=== PATIENT | male | born 1930 | race Caucasian/White ===

== ENCOUNTER 2016-09-10 20:04 | Inpatient (IN) | payer OTHER, MEDICARE ==
[~2016-09-10] VITALS: Ht 180.3 cm; Wt 66.7 kg
--- NOTE | 2016-09-10 20:20 | NUR ---
PT BIBA FROM HOME S/P FALL. PT REPORTS BENDING DOWN TO GRAB SOMETHING FROM REFRIGERATOR FEELING LEGS WEAK, LOSING BALANCE AND FALLING DOWN. PT REPORTS HITTING HEAD. PER EMS PT HAS LAC ON HEAD. UNABLE TO ASSESS AT THIS TIME DUE TO BANDAGE. PT A/O X4. DENIES PAIN. PT DENIES BEING ON BLOOD THINNERS
--- NOTE | 2016-09-10 20:48 | NUR ---
PT TO CT
--- NOTE | 2016-09-10 21:23 | RADIOLOGY REPORT ---
EXAMINATION: CHEST 2 VIEWS CLINICAL INFORMATION: fall with preceding weakness. COMPARISON: 09/07/2016. TECHNIQUE: PA and lateral views of the chest were obtained. FINDINGS: Lungs are hypoexpanded with linear markings at both lung bases more suggestive of atelectasis. Tiny bilateral pleural effusions are again seen similar to the prior study. There is central vascular prominence similar to the prior study. No new focal infiltrate or pneumothorax. Cardiac mediastinal silhouettes within normal limits for the technique. No acute bony abnormality appreciated. IMPRESSION: Bilateral small pleural effusions with bibasilar markings more suggestive of atelectasis in this setting. Overall the appearance is similar to the 09/07/2016 exam.
--- NOTE | 2016-09-10 21:24 | CT SCAN REPORT ---
EXAMINATION: CT HEAD WITHOUT CONTRAST CLINICAL INFORMATION: Status post fall. Hit head on tile floor. COMPARISON: None TECHNIQUE: Contiguous axial imaging was performed from the skull base to vertex without intravenous administration of contrast. DLP: 625.2 mGy-cm FINDINGS: There is no evidence of acute intracranial hemorrhage or territorial infarction. No abnormal mass effect or midline shift is seen. Kee to white matter differentiation is well preserved. No extra-axial fluid collections are identified. The ventricles and sulci are prominent in size. There is diffuse low-attenuation within the periventricular and subcortical white matter. Moderate calcifications are present involving the vertebral arteries, basilar artery, and cavernous portions of the carotid arteries. The osseous structures and soft tissues are normal. The mastoid air cells and visualized portions of the paranasal sinuses are well aerated. IMPRESSION: 1. No acute intracranial hemorrhage. 2. Moderate cerebral atrophy, age appropriate. 3. Moderate small vessel ischemic change.
--- NOTE | 2016-09-10 21:47 | NUR ---
BLOOD DRAWN AND SENT TO LAB SST, LAV, BLUE, WATTERS, PINK
[2016-09-10 21:51] LABS: ABSOLUTE BASOPHIL COUNT 0 /CUMM (0.0-0.2); ABSOLUTE EOSINOPHIL COUNT 0.4 /CUMM (0.0-0.7); ABSOLUTE GRANULOCYTE CT 7.2 /CUMM (1.4-6.5); ABSOLUTE LYMPH COUNT 0.7 /CUMM (1.2-3.4); ABSOLUTE MONOCYTE COUNT 0.7 /CUMM (0.10-0.60); BASOPHIL % 0.4 % (0.0-2.0); EOSINOPHIL % 4.8 % (0-5); GRANULOCYTE % 79.9 % (42.2-75.2); HEMATOCRIT 29.5 % (42-52); MEAN CORPUSCULAR HGB 27.3 PG (27.0-31.0); MEAN CORPUSCULAR HGB CONC 32.8 G/DL (33.0-37.0); MEAN CORPUSCULAR VOLUME 83.3 FL (80.0-94.0); MEAN PLATELET VOLUME 7.7 FL (7.4-10.4); PLATELET COUNT 363 /CUMM (130-400); RBC DISTRIBUTION WIDTH 16.7 % (11.5-14.5); RED BLOOD CELL CT 3.54 /CUMM (4.70-6.10); WHITE BLOOD CELL COUNT 9.1 /CUMM (4.8-10.8)
--- NOTE | 2016-09-10 22:09 | NUR ---
PT APPEARS TO BE RESTING COMFORTABLY. NO APPARENT DISTRESS. FAMILY AT BEDSIDE.
--- NOTE | 2016-09-10 22:30 | NUR ---
[facility] MUSE AT BEDSIDE SUTURING 1 CM LAC
[2016-09-10] MEDS ORDERED: AMOX-CLAV 875-1 EACH PO (22:50)
--- NOTE | 2016-09-10 23:04 | ED GENERAL ADULT ---
History of Present Illness General Chief Complaint: Laceration Procedure Stated Complaint: BIBA FOR FALL, HEAD LAC Source: patient, family Exam Limitations: no limitations Allergies Coded Allergies: No Known Allergies (09/10/16) Reconcile Medications Amoxicillin/Clavulanate Potass (Amox-Clav 875-125 MG Tablet) 875 MG-125 MG TABLET 1 TAB PO BID ANTIBIOTIC, INFECTION (Reported) Triage Note: PT BIBA FROM HOME S/P FALL. PT REPORTS BENDING DOWN TO GRAB SOMETHING FROM REFRIGERATOR FEELING LEGS WEAK, LOSING BALANCE AND FALLING DOWN. PT REPORTS HITTING HEAD. PER EMS PT HAS LAC ON HEAD. UNABLE TO ASSESS AT THIS TIME DUE TO BANDAGE. PT A/O X4. DENIES PAIN. PT DENIES BEING ON BLOOD THINNERS Triage Nurses Notes Reviewed? yes HPI: 86-year-old male with a history of spinal stenosis presenting status post fall about an hour prior to arrival. Reports that he went to bend over to get something out of the refrigerator when he felt weak and lost his balance. He fell to the ground striking his right head on tile floor. Denies loss of consciousness, headache, blurry vision, nausea, vomiting. The episode was not proceeded by any lightheadedness, dizziness, chest pain, shortness of breath, diaphoresis. Per family patient has been getting progressively weaker with multiple falls over the past couple weeks. He is in the process of being referred to neurology for further evaluation of progressive weakness. At baseline ambulates with a walker, has had increasing unsteadiness with ambulation over the past 4 weeks. Currently lives alone, has been nursing services a few times a week. (MICHA WEBER,BRAIN) Vital Signs & Intake/Output Vital Signs & Intake/Output Vital Signs Date Time Temp Pulse Resp B/P B/P Pulse O2 O2 Flow FiO2 Mean Ox Delivery Rate 09/10 2249 97.2 83 18 138/63 97 09/11 2011 96.6 85 18 145/68 96 ED Intake and Output 09/11 0000 09/10 1200 Intake Total Output Total Balance Patient 148 lb Weight Past History Travel History Traveled to [place] past 21 day No Medical History Any Pertinent Medical History? none Surgical History Surgical History: non-contributory Family History Hx Contributory? No (MICHA WEBER,BRAIN) Review of Systems Review of Systems Constitutional: Reports: no symptoms. Respiratory: Reports: no symptoms. Cardiovascular: Reports: no symptoms. GI: Reports: no symptoms. Genitourinary: Reports: no symptoms. Musculoskeletal: Reports: no symptoms. Skin: Reports: no symptoms. Neurological/Psychological: Reports: weakness. Denies: numbness, paresthesia, tingling, tremors. (BRAIN MUSE PA-C) Physical Exam Physical Exam General Appearance: well developed/nourished, no apparent distress Head: Small ~1cm lac to lateral right eyebrow with active bleeding that extends into the dermis, no harriet crepitus or facial instability Ears, Nose, Throat: normal ENT inspection Neck: normal inspection, full range of motion, no midline tenderness Respiratory: normal breath sounds, chest non-tender, lungs clear Cardiovascular: regular rate/rhythm Gastrointestinal: normal bowel sounds, soft, non-tender Rectal: normal exam, heme negative stool Back: normal inspection, no vertebral tenderness Extremities: normal inspection, normal range of motion Neurologic/Psych: awake, alert, oriented x 3, 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 No CVA/TIA Diagnosis: No Severe Sepsis Present: No Septic Shock Present: No (MICHA WEBER,BRAIN) Progress Differential Diagnoses I considered the following diagnoses in my evaluation of the patient: [Cardiac etiologies versus neurologic etiologies versus infectious etiologies versus metabolic etiology versus worsening muscle atrophy considered] Initial ED EKG: normal axis, rhythm (sinus), rate (82), no ST T wave changes (BRAIN MUSE PA-C) Plan of Care: Orders Procedure Date/time Status Place in observation 09/11 0045 Active Patient Data 09/[address] in observation 09/11 0000 Active URINALYSIS 09/10 2041 Complete COMPREHENSIVE METABOLIC PANEL 09/10 2041 Complete CBC WITHOUT DIFFERENTIAL 09/10 2041 Complete EKG 09/10 2041 Active Current Medications Sig/Darrell Start time Last Medication Dose Stop Time Status Admin Tetanus/Reduced 0.5 ML ONCE ONE 09/105 CAN Diphtheria/Acell 09/10 234 Pertussis (Adacel) Tetanus/Diphtheria 0 .STK-MED ONE 09/104 CAN Toxoids Adsorbed (Decavac) Laboratory Tests 09/10/16 2312: Urinalysis LIGHT H, Urine Color YEL, Urine Clarity CLEAR, Urine pH 6.0, Ur Specific [place] >= 1.030, Urine Protein TRACE H, Urine Ketones NEG, Urine Nitrite NEG, Urine Bilirubin NEG, Urine Urobilinogen 0.2, Ur Leukocyte Esterase NEG, Ur Microscopic SEDIMENT EXAMINED, Urine RBC 1-3, Urine WBC 3-5 H, Urine Bacteria RARE H, Urine Mucus RARE, Urine Hemoglobin TRACE-INTACT H, Urine Glucose NEG 09/10/16 2135: Anion Gap 10, Estimated GFR > 60, BUN/Creatinine Ratio 36.7 H, Glucose 91, Calcium 8.8, Total Bilirubin 0.6, AST 71 H, ALT 63, Alkaline Phosphatase 91, Total Protein 6.1 L, Albumin 3.2 L, Globulin 2.9, Albumin/Globulin Ratio 1.1, CBC w Diff NO MAN DIFF REQ, RBC 3.54 L, MCV 83.3, MCH 27.3, RDW 16.7 H, MPV 7.7, Gran % 79.9 H, Lymphocytes % 7.5 L, Monocytes % 7.4, Eosinophils % 4.8, Basophils % 0.4, Absolute Granulocytes 7.2 H, Absolute Lymphocytes 0.7 L, Absolute Monocytes 0.7 H, Absolute Eosinophils 0.4, Absolute Basophils 0, PUBS MCHC 32.8 L Given patient's weakness that preceded the fall medical evaluation was completed , workup remarkable for hemoglobin to 9.7, on rectal exam stool was guaiac negative. Since patient lives alone and has had increasing falls and continues with unsteady gait during ambulation discussed with care coordination. Given that the patient is below his functional baseline status he is unsafe to return home and needs further workup of this sudden change in functional status. Will obs for further evaluation. (MICHA WEBER,BRAIN) Departure Departure Disposition: STILL A PATIENT Condition: Stable Clinical Impression Primary Impression: Weakness Secondary Impressions: Eyebrow laceration, Fall Referrals: ALLIE ROMANO,Lorraine EGAN (PCP/Family) Departure Forms: Customer Survey General Discharge Information Observation Note Spoke With: DMITRI ROMANO,BRIGIDO Physician Advisor Notified: NOEL AVILA DO Place Patient In: Non-ED OBS Care Area Rationale for Observation: My rational for observation is as follows [below functional baseline status, unsafe to return home, needs further workup of sudden change in functional status.]. (MICHA WEBER,BRAIN) PA/LAB AID Co-Sign Statement Statement: ED Attending supervision documentation- [x] I saw and evaluated the patient. I have also reviewed all the pertinent lab results and diagnostic results. I agree with the findings and the plan of care as documented in the PA's/LAB AID's documentation. [] I have reviewed the ED Record and agree with the PA's/LAB AID's documentation. [] Additions or exceptions (if any) to the PAs/LAB AID's note and plan are summarized below: [] (TIANA ROMANO,NOEL Schaffer) Procedures Laceration/Wound Repair Laceration/Wound Repair: Wound Location: face (right eyebrow) Wound's Depth, Shape: superficial Wound Length (cm): 1 Wound Explored: clean, no foreign body removed Irrigated w/ Saline (ccs): 30 Betadine Prep? Yes Anesthesia: lidocaine w/ epi Volume Anesthetic (ccs): 1 Wound Repaired With: sutures Suture Size/Type: 6:0, absorbable Number of Sutures: 2 Layer Closure? No By Who? by me Date of Last Tetanus: 09/11/16 (BRAIN MUSE PA-C) Critical Care Note Critical Care Note Critical Care Time: non-applicable (MICHA WEBER,BRAIN)
--- NOTE | 2016-09-10 23:14 | NUR ---
URINE TRIO SENT
--- NOTE | 2016-09-10 23:14 | NUR ---
PT AMBULATED TO BATHROOM USING WALKER. GAIT STEADY. ON THE WAY BACK TO ROOM PT REPORTS LEGS FEELING TIRED AND WEAK
--- NOTE | 2016-09-11 01:05 | NUR ---
MEDICATED WITH TETANUS PER ORDERS AWAITING BED FOR OBSERVATION
--- NOTE | 2016-09-11 02:15 | NUR ---
PT IS GOING TO 224-1
--- NOTE | 2016-09-11 02:19 | History & Physical ---
COLLIN MARTINEZ 09/11/16 0219: General Information and HPI MD Statement: I have seen and personally examined ALANNA DESAI and documented this H&P. The patient is a 86 year old M who presented with a patient stated chief complaint of [ multiple fall and weakness ]. Source of Information: patient, EMS Exam Limitations: no limitations History of Present Illness: 86-year-old male with a history of spinal stenosis presenting status post fall. Patient lives in a senior housing, uses roller for ambulation, has visiting physical therapist and nurse. According to patient, for the past year patient had multiple episodes of mechanical fall, on average 2-3 falls per month. The latest episode happened while patient tried to get something from refrigerator. Patient reports, how, suddenly he felt weak in his legs and collapse. According to patient as a result of the fall he had head trauma, however he denied any loss of consciousness, bowel bladder incontinence, tongue bites, confusion, focal motor sensory deficit, chest pain, palpitation, short of breath, dizziness , nausea vomiting diarrhea, new medication, fever and shaking chills. Patient had a past medical history of aortic stenosis which was evaluated by neurosurgeon and neurologist without any particular resolution. Patient pointed out that for the past year his physical capacity has been diminished over time. Of note, patient was seen by Dr. Sendy ROMANO today who ordered a CXR, based on his lontime Hx of SOB and non-specific findings on CXR. Patient was started on po Augmentin. He also has a long standing Hx of venous insuffiency and chronic le edema instrumentation ( acupuncture about last week). Allergies/Medications Allergies: Coded Allergies: No Known Allergies (09/10/16) Home Med list Amoxicillin/Clavulanate Potass (Amox-Clav 875-125 MG Tablet) 875 MG-125 MG TABLET 1 TAB PO BID ANTIBIOTIC, INFECTION (Reported) Compliance With Home Meds: GOOD Past History Travel History Traveled to [place] past 21 day No Medical History Cardiovascular: NONE Respiratory: NONE Musculoskeletal: spinal stenosis Tetanus Vaccine: 09/11/16 Surgical History Surgical History: non-contributory Past Family/Social History Functional Ability ADLs Independent: dressing, eating, toileting, bathing. Ambulation: walker IADLs Independent: housework, finances, food prep, telephone, transportation, medication admin. Needs Assist: shopping. Review of Systems Review of Systems Constitutional: Reports: see HPI. EENTM: Reports: see HPI. Cardiovascular: Reports: see HPI. Denies: no symptoms, chest pain, edema, orthopena, palpitations, peripheral edema, syncope. Respiratory: Denies: see HPI, cough, hemoptysis, orthopnea, short of breath, sputum production, stridor, wheezing. GI: Reports: no symptoms. Genitourinary: Reports: no symptoms. Musculoskeletal: Reports: see HPI. Neurological/Psychological: Reports: see HPI. All Other Systems: Reviewed and Negative Exam & Diagnostic Data Last 24 Hrs of Vital Signs/I&O Vital Signs Date Time Temp Pulse Resp B/P B/P Pulse O2 O2 Flow FiO2 Mean Ox Delivery Rate 09/11 0102 97.0 82 20 151/72 96 Room Air 09/10 2250 97.2 83 18 138/63 97 09/10 2012 96.6 85 18 145/68 96 Intake & Output 09/11 0800 09/11 0000 09/10 1600 Intake Total Output Total Balance Patient 148 lb Weight Physical Exam General Appearance Alert, Oriented X3, Cooperative, No Acute Distress Skin No Rashes, No Breakdown, No Significant Lesion Skin Temp/Moisture Exam: Warm/Dry Sepsis Skin Exam (color): Normal for Ethnicity HEENT MM slightly dry, head trauma and bruised Neck Supple, No JVD Cardiovascular Normal S1, Normal S2, No Murmurs Lungs Clear to Auscultation, Normal Air Movement Abdomen Soft, No Tenderness Neurological Normal Speech, Strength at 5/5 X4 Ext, Normal Tone, Sensation Intact, Cranial Nerves 3-12 NL Extremities No Cyanosis, No Edema Vascular Normal Pulses, Pulses Symmetrical Body Front and Back (Adult) 1) head trauma Last 24 Hrs of Labs/Fabrizio: Laboratory Tests 09/10/16 2312: Urinalysis LIGHT H, Urine Color YEL, Urine Clarity CLEAR, Urine pH 6.0, Ur Specific [place] >= 1.030, Urine Protein TRACE H, Urine Ketones NEG, Urine Nitrite NEG, Urine Bilirubin NEG, Urine Urobilinogen 0.2, Ur Leukocyte Esterase NEG, Ur Microscopic SEDIMENT EXAMINED, Urine RBC 1-3, Urine WBC 3-5 H, Urine Bacteria RARE H, Urine Mucus RARE, Urine Hemoglobin TRACE-INTACT H, Urine Glucose NEG 09/10/165: Anion Gap 10, Estimated GFR > 60, BUN/Creatinine Ratio 36.7 H, Glucose 91, Calcium 8.8, Total Bilirubin 0.6, AST 71 H, ALT 63, Alkaline Phosphatase 91, Total Protein 6.1 L, Albumin 3.2 L, Globulin 2.9, Albumin/Globulin Ratio 1.1, CBC w Diff NO MAN DIFF REQ, RBC 3.54 L, MCV 83.3, MCH 27.3, RDW 16.7 H, MPV 7.7, Gran % 79.9 H, Lymphocytes % 7.5 L, Monocytes % 7.4, Eosinophils % 4.8, Basophils % 0.4, Absolute Granulocytes 7.2 H, Absolute Lymphocytes 0.7 L, Absolute Monocytes 0.7 H, Absolute Eosinophils 0.4, Absolute Basophils 0, PUBS MCHC 32.8 L Diagnostic Data EKG Results No p wave ?? 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 Plan * Admit to general medical floor * IV hydration normal saline 100 mL per hour for mild dehydration * Continue by mouth Augmentin and repeat chest x-ray in 6-8 weeks, start the patient on Mucinex 600 mg po ER po daily * Fall precaution * Obtain renal US for assessment of the newly diagnosed exophytic soft tissue density on kidneys * PT/OT eval in the morning * Social consult in the a.m. * Admission for 3 days; short-term rehabilitation placement * Asymptomatic pyuria w/ negative nitrate>> observe, off antibiotics, if developed symptoms, sent urine Cx and start Cefteriaxone Pain management Tylenol 650 mg q6 PRN, Lidocain path amd volteran gel, IV morphin 2 mg prn Q4 for severe pain DVT prophylaxis- heparin 5000U a8h sc amd alps FC As Ranked By This Provider Problem List: 1. Weakness 2. Fall Core Measures/Miscellaneous Acute Coronary Syndrome ACS Diagnosis: No Cerebrovascular Accident CVA/TIA Diagnosis: No Congestive Heart Failure CHF Diagnosis: No Venous Thromboembolism VTE Risk Factors: Acute medical illness, Age > 40, Immobility, paresis No Mech VTE prophylaxis d/t: No contraindications No VTE Pharm Prophylaxis d/t: No contraindications VTE Diagnosis: No VTE Type: NONE VTE Confirmed by (Test): NONE Severe Sepsis Severe Sepsis Present: No Septic Shock Septic Shock Present: No Miscellaneous Documentation Attending Case Discussed With: BRIGIDO RIZVI MD Primary Care Physician: Lorraine KELLEY MD Patient sees these Specialists board turner Level of Patient Care: General Medicine Resident Review Statement Resident Statement: examined this patient, discussed with physician/internist, agreed with physician/internist, discussed with family, reviewed EMR data (avail), discussed with nursing , discussed with case mgmt, reviewed images, amended to note BRIGIDO RIZVI 09/11/16 0552: Attending MD Review Statement Attending Statement Attending MD Statement: examined this patient, discuss w/resident/PA/COMPUTER PROGRAMMER CHIEF, agreed w/resident/PA/COMPUTER PROGRAMMER CHIEF, reviewed EMR data (avail), reviewed images, amended to note Attending Assessment/Plan: CC: Fall PMH: ? none, chronic pain, spinal stenosis Patient came to ER after a fall at home. Patient was trying to get something from after generator and he bent forward, says that, his legs gave out and he fell down without loss of consciousness or dizziness. he hit his head at that time. He didn't denies any vision changes, nausea, vomiting, chest pain. Patient states that his legs are just getting stiff. According to ER note he is getting progressively weak and decreased level of functionality had multiple falls approximately 3-4 falls per month and last few months. Ambulates with walker, still unsteady for ambulation. Patient states that since last 3 weeks he had been getting nonproductive cough, worsening of breathing, pain in lateral side of the chest and back both sides upon deep breathing. Last week he followed up with the primary care physician, in office that the pressure was elevated, chest x-ray was obtained which showed pneumonia, so patient was started on Augmentin. Patient also had some venous procedure done last week according to him for ? Varicose veins and pedal edema. Patient has laceration on forehead which was sutured in ER Vitals: Afebrile, pulse, respiration, blood pressure, O2 saturation acceptable range. On exam: A O 3, cooperative, no acute distress, neck supple, JVD normal, no lymphadenopathy, mucosa dry, no focal neurological deficit but lower extremity movements are limited secondary to pain in knee joints. No dependent edema, no obvious skin rashes or inflammation, decreased pulses bilateral lower extremities, CVS: S1-S2, RRR. RS: Coarse breathing bilaterally basis right more than left. Abdomen: Soft, NT, ND, bowel sounds present. Labs: WBC 9.1, neutrophils 79%, hemoglobin 9.7, hematocrit 29.5, sodium 141, potassium 4.0, bicarbonate 25, anion gap 10, BUN 33, creatinine 0.9, AST 71, albumin 3.2 UA positive for trace protein, 3-5 WBC, rare bacteria CXR:Bilateral small pleural effusions with bibasilar markings more suggestive of atelectasis in this setting. Overall the appearance is similar to the 09/07/[address] head: 1. No acute intracranial hemorrhage. 2. Moderate cerebral atrophy, age appropriate. 3. Moderate small vessel ischemic change. A and P Patient was brought in ER by family for a fall, which appears to be mechanical without any evidence of presyncope or syncope. Patient states that his knees gave out. Reviewing his previous medical records it appears that had some moderate to severe degree spinal stenosis and lumbar degenerative disc disease, which might be contributing to the problem. At the same time patient was found to have mild bibasal infiltrates on x-ray done last week, patient states that he has dry cough and worsening shortness of breath with some back pain and lateral chest pain since 3 weeks. Patient was started outpatient Augmentin for the same considering pneumonia. On CT scan done on 2015, incidentally exophytic soft tissue density was noted on right and left kidneys, this should be followed up. Patient had small laceration on forehead, had sutures in ER. + Recurrent falls + Unsteady gait + Recently diagnosed pneumonia + Exophytic soft tissue density on kidneys - Place in observation and Gen. medicine - Orthostatic vitals in a.m. - OT PT evaluation - Gentle hydration for 1 L normal saline - Check B12 level - Need to reconfirm his home medications from his daughters in morning - Renal ultrasound - Continue by mouth Augmentin for recently suspected pneumonia - Adequate pain control - Mucinex 600 mg by mouth twice a day for cough.
--- NOTE | 2016-09-11 02:39 | NUR ---
HOUSE STAFF INTO EVALUATE PATIENT AT PRESENT
--- NOTE | 2016-09-11 02:47 | NUR ---
CONT TO AWAIT HOLDING ORDERS.
--- NOTE | 2016-09-11 02:55 | NUR ---
REPORT TO LUDIVINA CHO
[2016-09-11 03:27] VITALS: BP 142/70
[2016-09-11 06:30] VITALS: BP 136/68
--- NOTE | 2016-09-11 08:22 | PN- Housestaff ---
LOVE ROMANO,AYDEN 09/11/16 0821: Subjective Follow-up For: fall Subjective: pt was lying comfortably on the bed, arousable. reports no complains currently agreeably with plan to rehab. had 1 big loose bm this am, will get c diff if has anymore loose bm also has skin tears on the left arm, and left buttock (had abscess sp drainage), will do xeroform dressing for now, will get wound consult with Dr. Laughlin in am. Review of Systems Constitutional: Reports: see HPI. Objective Last 24 Hrs of Vital Signs/I&O Vital Signs Date Time Temp Pulse Resp B/P B/P Pulse O2 O2 Flow FiO2 Mean Ox Delivery Rate 09/11 0630 98.5 81 18 136/68 95 Room Air 09/11 0327 98.1 90 20 142/70 94 Room Air 09/11 0102 97.0 82 20 151/72 96 Room Air 09/10 2250 97.2 83 18 138/63 97 09/10 2012 96.6 85 18 145/68 96 Intake & Output 09/11 1600 09/11 0800 09/11 0000 Intake Total 400 Output Total 200 Balance 200 Intake, IV 300 Intake, Oral 100 Output, Urine 200 Patient 67.132 kg 67.132 kg Weight Physical Exam General Appearance: Alert, Oriented X3, Cooperative, No Acute Distress Skin: skin tear left arm. and left buttock non healing open wound (abscess sp drainage) HEENT: laceration on right forehead and eyebrow, sutured Cardiovascular: Regular Rate, Normal S1, Normal S2, No Murmurs Lungs: Clear to Auscultation, Normal Air Movement Abdomen: Normal Bowel Sounds, Soft, No Tenderness Neurological: Normal Speech Extremities: No Edema Current Medications: Current Medications Sig/Darrell Start time Last Medication Dose Route Stop Time Status Admin Acetaminophen 650 MG Q6P PRN 09/11 0330 AC PO Acetaminophen 1,000 MG Q6P PRN 09/11 0330 AC IV Amoxicillin/ 875 MG BID 09/11 1000 CAN Clavulanate Potassium PO 09/20 2201 Cyanocobalamin 1,000 MCG DAILY 09/11 1006 AC PO Diclofenac Sodium 1 WESLEY 4 TIMES/DAY 09/11 0317 DC TOP Guaifenesin 600 MG Q12 09/11 1000 AC 09/11 PO 1009 Lidocaine 1 PAT Q24H 09/11 0330 AC 09/11 EXT 0507 Lidocaine/Epinephrine 0 .STK-MED ONE 09/10 2216 DC .ROUTE Lidocaine/Epinephrine 20 ML ONCE ONE 09/10 2214 DC 09/10 ID 09/11 2215 2242 Morphine Sulfate 2 MG Q4P PRN 09/11 033 AC IV Sodium Chloride 1,000 ML ONCE ONE 09/11 0330 AC 09/11 IV 09/11 1329 0516 Tetanus/Diphtheria 0.5 ML ONCE ONE 09/10 2345 DC 09/11 Toxoids Adsorbed IM 09/10 2346 0106 Tetanus/Diphtheria 0 .STK-MED ONE 09/10 2344 CAN Toxoids Adsorbed IM Tetanus/Reduced 0.5 ML ONCE ONE 09/10 2344 CAN Diphtheria/Acell IM 09/10 234 Pertussis Last 24 Hrs of Lab/Fabrizio Results Last 24 Hrs of Labs/Mics: Laboratory Tests 09/11/16 0650: Anion Gap 9, Estimated GFR > 60, BUN/Creatinine Ratio 35.0 H, CBC w Diff NO MAN DIFF REQ, RBC 3.29 L, MCV 83.0, MCH 27.7, RDW 16.0 H, MPV 8.1, Gran % 73.1, Lymphocytes % 9.6 L, Monocytes % 8.5, Eosinophils % 8.2 H, Basophils % 0.6, Absolute Granulocytes 5.1, Absolute Lymphocytes 0.7 L, Absolute Monocytes 0.6, Absolute Eosinophils 0.6, Absolute Basophils 0, PUBS MCHC 33.4 09/10/16 2312: Urinalysis LIGHT H, Urine Color YEL, Urine Clarity CLEAR, Urine pH 6.0, Ur Specific [place] >= 1.030, Urine Protein TRACE H, Urine Ketones NEG, Urine Nitrite NEG, Urine Bilirubin NEG, Urine Urobilinogen 0.2, Ur Leukocyte Esterase NEG, Ur Microscopic SEDIMENT EXAMINED, Urine RBC 1-3, Urine WBC 3-5 H, Urine Bacteria RARE H, Urine Mucus RARE, Urine Hemoglobin TRACE-INTACT H, Urine Glucose NEG 09/10/16 2135: Anion Gap 10, Estimated GFR > 60, BUN/Creatinine Ratio 36.7 H, Glucose 91, Calcium 8.8, Total Bilirubin 0.6, AST 71 H, ALT 63, Alkaline Phosphatase 91, Total Protein 6.1 L, Albumin 3.2 L, Globulin 2.9, Albumin/Globulin Ratio 1.1, Vitamin B12 234 L, CBC w Diff NO MAN DIFF REQ, RBC 3.54 L, MCV 83.3, MCH 27.3, RDW 16.7 H, MPV 7.7, Gran % 79.9 H, Lymphocytes % 7.5 L, Monocytes % 7.4, Eosinophils % 4.8, Basophils % 0.4, Absolute Granulocytes 7.2 H, Absolute Lymphocytes 0.7 L, Absolute Monocytes 0.7 H, Absolute Eosinophils 0.4, Absolute Basophils 0, PUBS MCHC 32.8 L Microbiology 09/11 0949 STOOL: Clostridium difficile Toxin A & B - COLB Assessment/Plan Assessment: 86-year-old male with a history of spinal stenosis presenting status post fall, with recurrent falls (3-4 per month). # Recurrent fall, unsteady gait # Laceration on forehead sutured in ED - CT head no acute intracranial hemorrhage - Vit b12 found to be low at 234 * Vit b12 supplementation ordered * PT recc STR, need 3 night stay * Admit to [facility] * Monitor h/h # Recently diagnosed pneumonia - Patient states that since last 3 weeks he had been getting nonproductive cough , worsening of breathing, pain in lateral side of the chest and back both sides upon deep breathing. On September 07, he followed up with the primary care physician , in office that the pressure was elevated, chest x-ray was obtained which showed pneumonia, so patient was started on Augmentin. - CXR:Bilateral small pleural effusions with bibasilar markings more suggestive of atelectasis in this setting. Overall the appearance is similar to the 2016 exam. * Follow off abx as pt now complains of loose stool and no convining evidence of pneumonia * mucinex 600 bid for cough # Loose stool - was on abx prior to admission for pna * follow up cdiff # Exophytic soft tissue densities on bilateral kidneys on CT in 2016 * Follow up renal ultrasound # Skin tears, non healing left buttock abscess sp drainage * xeroform dressing for now * will get wound consult with Dr. Laughlin in am. Diet: regular Pain management Tylenol 650 mg q6 PRN, Lidocaine patch, IV morphine 2 mg prn Q4 for severe pain DVT prophylaxis- heparin 5000U q8h sc amd alps FC Problem List: 1. Weakness 2. Fall Pain Ratin Pain Location: none Pain Goal: Remain pain free Pain Plan: mild pp Tomorrow's Labs & Rationales: cbc for dropping h/h sp fall DVT/Prophylaxis: mechanical, pharmacological KATHY ROMANO,BRIAN 09/11/16 1007: Attending MD Review Statement Attending Statement Attending MD Statement: examined this patient, discuss w/resident/PA/MAIL FORWARDING SYSTEM MARKUP CLERK, agreed w/resident/PA/MAIL FORWARDING SYSTEM MARKUP CLERK, discussed with family, discussed with nursing, reviewed images Attending Assessment/Plan: I spoke to both the patient's daughters at length. This is an 86-year-old male with a past medical history that's not very significant but was had a significant change in his physical capacity for the past 6 months. He's been seeing Dr. Kaba and most recently saw Dr. Contreras for spinal stenosis. He has been feeling progressively more weak and ultimately fell sustaining a laceration to his head requiring sutures over his right eyebrow and a knee abrasion with an elbow bruise. Dr. Kaba had recently started him on by mouth Augmentin as of September 07 in view of a chest x-ray that showed ?pneumonia however the chest x-ray shows much more atelectasis and given the lack of fever or cough and the fact that the nurses saying he is having some loose bowel movements will stop the Augmentin and check a stool for C. difficile. His B12 level has come back low and that could certainly account for his weakness . Will start B12 supplementation. At this point we are pending a PT eval and the nurse walked him, he's an assist of 2. I think he is going to need short-term rehabilitation for safe discharge planning. Will await PT and if he does need STR, will need to make him an admission and follow closely. The daughters are on board with the plan.
[2016-09-11 08:36] LABS: ABSOLUTE BASOPHIL COUNT 0 /CUMM (0.0-0.2); ABSOLUTE EOSINOPHIL COUNT 0.6 /CUMM (0.0-0.7); ABSOLUTE GRANULOCYTE CT 5.1 /CUMM (1.4-6.5); ABSOLUTE LYMPH COUNT 0.7 /CUMM (1.2-3.4); ABSOLUTE MONOCYTE COUNT 0.6 /CUMM (0.10-0.60); BASOPHIL % 0.6 % (0.0-2.0); EOSINOPHIL % 8.2 % (0-5); GRANULOCYTE % 73.1 % (42.2-75.2); HEMATOCRIT 27.3 % (42-52); MEAN CORPUSCULAR HGB 27.7 PG (27.0-31.0); MEAN CORPUSCULAR HGB CONC 33.4 G/DL (33.0-37.0); MEAN PLATELET VOLUME 8.1 FL (7.4-10.4); PLATELET COUNT 321 /CUMM (130-400); RED BLOOD CELL CT 3.29 /CUMM (4.70-6.10); WHITE BLOOD CELL COUNT 6.9 /CUMM (4.8-10.8)
--- NOTE | 2016-09-11 09:07 | NUR ---
RECEIVED PT FROM ER AT 0315. A/O X3. ON RA. VSS. DRSG CHANGED TO L KNEE ABRASION, L ELBOW SKIN TEAR AND L HAND ABRASION. DUODERM APPLIED TO AN OPEN AREA TO R BUTTOCK. SUTURES X2 TO THE END OF R EYEBROW. LIDOCAINE PATCH APPLIED TO L FLANK. FALL PREC PLACED. ALPS TO BLE. VOIDING WITHOUT PROBLEM. WILL CONTINUE TO MONITOR.
--- NOTE | 2016-09-11 10:45 | ULTRASOUND REPORT ---
EXAMINATION: US RETROPERITONEAL COMPLETE (RENAL) CLINICAL INFORMATION: Follow-up of renal densities. COMPARISON: CT lumbar spine dated 07/29/2016. TECHNIQUE: Real-time imaging of the kidneys and bladder. FINDINGS: RIGHT KIDNEY: 10.5 x 4.4 x 4.0 cm (SAG x AP x TRV). The kidney is normal in size, contour, and echogenicity. Renal cortical thickness is normal. No calculi or focal parenchymal solid lesions. At the upper pole of, a 1.6 x 1.6 x 1.4 cm hypoechoic, mildly complex (Bosniak 2F) cyst is seen with increased through sound transmission. At the lower pole, a 3.4 x 3.3 x 3.4 cm hypoechoic, mildly complex (Bosniak 2F) cyst is seen with increased through sound transmission. No hydronephrosis. LEFT KIDNEY: Nonvisualized, with limitations are noted due to dressing material overlapping the left flank. BLADDER: Poorly distended and presently incompletely evaluated with ultrasound. Bilateral ureteral jets are demonstrated. Pre-void bladder volume is 57 mL. Post-void bladder volume is not obtained. OTHER: Limited evaluation the prostate yields an estimated volume of 47.1 mL. IMPRESSION: 1. Two mildly complex hypoechoic (Bosniak 2F) cysts are seen, as detailed. As a precaution, repeat renal ultrasound exam is recommended in 6 months to ensure stability. 2. There is prostatomegaly.
[2016-09-11 15:11] VITALS: BP 132/68
--- NOTE | 2016-09-11 15:53 | Patient Discharge Instructions ---
Discharge Instructions General Discharge Information You were seen/treated for: Vitamin B12 deficiency Recurrent fall, unsteady gait Special Instructions: Please follow up with PCP in 1 week. Please get renal ultrasound in 6 months for renal mass. Wound care recommended offload pressure ulcer and low air loss mattress and to continue to use xeroderm changed every 2-3 days. Diet Continue normal diet: Yes Activity Full Activity/No Limits: Yes Acute Coronary Syndrome Inclusion Criteria At DC or during hospital stay patient has or had the following: ACS DIAGNOSIS No Discharge Core Measures Meds if any: Prescribed or Continued at Discharge Meds if any: NOT Prescribed or Continued at Discharge Congestive Heart Failure Inclusion Criteria At DC or during hospital stay patient has or had the following: CHF DIAGNOSIS No Discharge Core Measures Meds if any: Prescribed or Continued at Discharge Meds if any: NOT Prescribed or Continued at Discharge Cerebrovascular accident Inclusion Criteria At DC or during hospital stay patient has or had the following: CVA/TIA Diagnosis No Discharge Core Measures Meds if any: Prescribed or Continued at Discharge Meds if any: NOT Prescribed or Continued at Discharge Venous thromboembolism Inclusion Criteria VTE Diagnosis No VTE Type NONE VTE Confirmed by (Test) NONE Discharge Core Measures - Per Current guidelines, there needs to be overlap - treatment for the first 5 days of Warfarin therapy. - If discharged on Warfarin prior to 5 days of - overlap therapy, the patient will need to be - assessed for post discharge needs including - *Post discharge parental anticoagulation - *Warfarin and/or parental anticoagulation education - *Follow up date to check INR post discharge At least 5 days overlap therapy as Inpatient No Meds if any: Prescribed or Continued at Discharge Note: Overlap Therapy is Warfarin and Anticoagulant Meds if any: NOT Prescribed or Continued at Discharge
[2016-09-11 17:51] VITALS: BP 146/78
--- NOTE | 2016-09-11 18:44 | NUR ---
1840- PT HAD ONE LARGE LOOSE BM THIS MORNING WHICH WAS REPORTED TO DR. CHAVEZ. PT HAS BEEN ON AUGMENTIN. CDIFF ORDERED. PT HAS NOT HAD ANOTHER BM SINCE THIS MORNING. CDIFF SAMPLE NOT ABLE TO BE COLLECTED.
[2016-09-11 22:44] VITALS: BP 154/70
[2016-09-12 06:30] VITALS: BP 146/70
--- NOTE | 2016-09-12 07:12 | PN- Housestaff ---
LOVE ROMANO,AYDEN 09/12/16 0712: Subjective Follow-up For: recurrent fall Subjective: pt feels well today, offers no complaints. hb back up from 9.7 to 9.1 to 9.7. will not repeat labs in the morning plan to be discharged to rehab tomorrow wound consult with Dr. Laughlin placed for nonhealing right buttock wound and skin tears. Review of Systems Constitutional: Reports: see HPI. Objective Last 24 Hrs of Vital Signs/I&O Vital Signs Date Time Temp Pulse Resp B/P B/P Pulse O2 O2 Flow FiO2 Mean Ox Delivery Rate 09/12 0630 97.6 73 18 146/70 96 Room Air 09/11 2244 97.8 75 20 154/70 95 09/11 1751 78 146/78 09/11 1511 98.6 91 20 132/68 93 Intake & Output 09/12 1600 09/12 0800 09/12 0000 Intake Total 240 360 Output Total 250 Balance -10 360 Intake, Oral 240 360 Output, Urine 250 Physical Exam General Appearance: Alert, Oriented X3, Cooperative, No Acute Distress Cardiovascular: Regular Rate, Normal S1, Normal S2, No Murmurs Lungs: Clear to Auscultation, Normal Air Movement Abdomen: Normal Bowel Sounds, Soft, No Tenderness Neurological: Normal Speech Extremities: No Edema Current Medications: Current Medications Sig/Darrell Start time Last Medication Dose Route Stop Time Status Admin Acetaminophen 650 MG Q6P PRN 09/11 0330 AC PO Acetaminophen 1,000 MG Q6P PRN 09/11 0330 AC IV Cyanocobalamin 1,000 MCG DAILY 09/11 1006 AC 09/12 PO 0905 Diclofenac Sodium 1 WESLEY 4 TIMES/DAY 09/11 0317 DC TOP Guaifenesin 600 MG Q12 09/11 1000 AC 09/12 PO 0905 Heparin Sodium 5,000 UNIT Q8 09/12 1145 UNVr (Porcine) SC Lidocaine 1 PAT Q24H 09/11 033 AC 09/12 EXT 0605 Morphine Sulfate 2 MG Q4P PRN 09/11 033 AC IV Sodium Chloride 1,000 ML ONCE ONE 09/11 033 DC 09/11 IV 09/11 1329 0516 Last 24 Hrs of Lab/Fabrizio Results Last 24 Hrs of Labs/Mics: Laboratory Tests 09/12/16 0725: CBC w Diff NO MAN DIFF REQ, RBC 3.57 L, MCV 83.5, MCH 27.3, RDW 16.6 H, MPV 8.2, Gran % 71.1, Lymphocytes % 11.1 L, Monocytes % 8.6, Eosinophils % 8.9 H, Basophils % 0.3, Absolute Granulocytes 4.2, Absolute Lymphocytes 0.7 L, Absolute Monocytes 0.5, Absolute Eosinophils 0.5, Absolute Basophils 0, PUBS MCHC 32.7 L Assessment/Plan Assessment: 86-year-old male with a history of spinal stenosis presenting status post fall, with recurrent falls (3-4 per month). # Recurrent fall, unsteady gait # Laceration on forehead sutured in ED - CT head no acute intracranial hemorrhage - Vit b12 found to be low at 234 * Vit b12 supplementation ordered, will continue at discharge * PT recc STR, need 3 night stay * Admit to * h/h stable # Recently diagnosed pneumonia - Patient states that since last 3 weeks he had been getting nonproductive cough , worsening of breathing, pain in lateral side of the chest and back both sides upon deep breathing. On September 07, he followed up with the primary care physician , in office that the pressure was elevated, chest x-ray was obtained which showed pneumonia, so patient was started on Augmentin. - CXR:Bilateral small pleural effusions with bibasilar markings more suggestive of atelectasis in this setting. Overall the appearance is similar to the 2016 exam. * Follow off abx as pt now complains of loose stool and no convining evidence of pneumonia * mucinex 600 bid for cough # Loose stool - was on abx prior to admission for pna * follow up cdiff # Exophytic soft tissue densities on bilateral kidneys on CT in 2016 * Please get repeat renal us in 6 months # Skin tears on arms, non healing RIGHT buttock abscess sp drainage 3 years ago (stage 2 ulcer) * xeroform dressing for now * appreciate wound consult with Dr. Laughlin Diet: regular Pain management Tylenol 650 mg q6 PRN, Lidocaine patch, IV morphine 2 mg prn Q4 for severe pain DVT prophylaxis- heparin 5000U q8h sc amd alps FC Problem List: 1. Weakness 2. Fall Pain Ratin Pain Location: none Pain Goal: Remain pain free Pain Plan: mild pp Tomorrow's Labs & Rationales: none DVT/Prophylaxis: mechanical, pharmacological CHANTE CHAVARRIA 09/12/16 1144: Attending MD Review Statement Attending Statement Attending MD Statement: examined this patient, discuss w/resident/PA/MOLD SHAKER, agreed w/resident/PA/MOLD SHAKER, discussed with family, reviewed EMR data (avail), discussed with nursing, discussed with case mgmt, reviewed images, amended to note Attending Assessment/Plan: "This is an 86-year-old male with a past medical history that's not very significant but was had a significant change in his physical capacity for the past 6 months. He's been seeing Dr. Kaba and most recently saw Dr. Contreras for spinal stenosis. He has been feeling progressively more weak and ultimately fell sustaining a laceration to his head requiring sutures over his right eyebrow and a knee abrasion with an elbow bruise. Dr. Kaba had recently started him on by mouth Augmentin as of September 07 in view of a chest x-ray that showed ?pneumonia however the chest x-ray shows much more atelectasis and given the lack of fever or cough and the fact that the nurses saying he is having some loose bowel movements will stop the Augmentin and check a stool for C. difficile. His B12 level has come back low and that could certainly account for his weakness . Will start B12 supplementation. At this point we are pending a PT eval and the nurse walked him, he's an assist of 2. I think he is going to need short-term rehabilitation for safe discharge planning. Will await PT and if he does need STR, will need to make him an admission and follow closely. The daughters are on board with the plan". ASSESSMENT 1. General physical deconditioning. 2. Spinal stenosis 3. b/l lower extremity weakness 4. Vitamin b 12 defeciency. PLAN replace vit b 12, PT eval, MRI spine , family/patient agreeable to treatment. gi/dvt prophyalxis
[2016-09-12 08:23] LABS: ABSOLUTE BASOPHIL COUNT 0 /CUMM (0.0-0.2); ABSOLUTE EOSINOPHIL COUNT 0.5 /CUMM (0.0-0.7); ABSOLUTE GRANULOCYTE CT 4.2 /CUMM (1.4-6.5); ABSOLUTE LYMPH COUNT 0.7 /CUMM (1.2-3.4); ABSOLUTE MONOCYTE COUNT 0.5 /CUMM (0.10-0.60); BASOPHIL % 0.3 % (0.0-2.0); EOSINOPHIL % 8.9 % (0-5); GRANULOCYTE % 71.1 % (42.2-75.2); HEMATOCRIT 29.8 % (42-52); MEAN CORPUSCULAR HGB 27.3 PG (27.0-31.0); MEAN CORPUSCULAR HGB CONC 32.7 G/DL (33.0-37.0); MEAN CORPUSCULAR VOLUME 83.5 FL (80.0-94.0); MEAN PLATELET VOLUME 8.2 FL (7.4-10.4); PLATELET COUNT 323 /CUMM (130-400); RBC DISTRIBUTION WIDTH 16.6 % (11.5-14.5); RED BLOOD CELL CT 3.57 /CUMM (4.70-6.10); WHITE BLOOD CELL COUNT 5.9 /CUMM (4.8-10.8)
--- NOTE | 2016-09-12 13:39 | Discharge Summary ---
Visit Information Visit Dates Admission Date: 09/11/16 Discharge Date: 09/14/16 Hospital Course Course Attending Physician: CHANTE CHAVARRIA MD Primary Care Physician: Lorraine KELLEY MD [facility] Course: This is a 86 YO M w/pMH signifinact for chronic pain, spinal stenosis who presented to [place] ED on 09/11/16 s/p mechanical fall. On admission, he denied any vision changes, nausea, vomiting, chest pain. Patient stated that his legs are just getting stiff. Ambulates with walker, still was unsteady for ambulation. He has been feeling progressively more weak and ultimately fell sustaining a laceration to his head requiring sutures over his right eyebrow and a knee abrasion with an elbow bruise. Ph/ex at the time of admission: Vital signs: Afebrile, pulse, respiration, blood pressure, O2 saturation acceptable range. On exam: A O 3, cooperative, no acute distress, neck supple, JVD normal, no lymphadenopathy, mucosa dry, no focal neurological deficit but lower extremity movements are limited secondary to pain in knee joints. No dependent edema, no obvious skin rashes or inflammation, decreased pulses bilateral lower extremities, CVS: S1-S2, RRR. RS: Coarse breathing bilaterally basis right more than left. Abdomen: Soft, NT, ND, bowel sounds present. Pertinent Labs: WBC 9.1, neutrophils 79%, hemoglobin 9.7, hematocrit 29.5, sodium 141, potassium 4.0, bicarbonate 25, anion gap 10, BUN 33, creatinine 0.9, AST 71, albumin 3.2 UA positive for trace protein, 3-5 WBC, rare bacteria CXR:Bilateral small pleural effusions with bibasilar markings more suggestive of atelectasis in this setting. Overall the appearance is similar to the 09/07/2016 exam. The following problems were addressed during the course of his hopital stay: # Recurrent fall, unsteady gait/Laceration on forehead sutured in ED CT head no acute intracranial hemorrhage. Vit B12 found to be low at 234. Unsteady gait and weakness could be 2/2 vitamin B12 deficiency. He received Vit B12 supplementation(IM and PO). PT recommended rehab. To follow up with PCP in one week. May benefit from monthly Vit B12 injections. Was started on Ca/Vit D supplement and Iron supplement. #Episode of high BP: Had episode of high BP systolic in 180s on 09/14/16. Otherwise asymp and benign physical exam. No PMH of HTN. Received one time dose of amlodipine 5 mg BP improved to sys 150s-160s. Was started on amlodipine 2.5 mg QD upon discharge. BP should be followed up closely at rehab. # Recently diagnosed pneumonia Dr. Kelley had recently started him on by mouth Augmentin as of September 07 in view of a chest x-ray that showed ?pneumonia however the chest x-ray showed much more atelectasis and given the lack of fever or cough and the fact that he was reported to have an episode of loose bowel movements Augmentin was stopped. # Exophytic soft tissue densities on bilateral kidneys on CT in 2016 Should get repeat Renal US in 6 months. # Skin tears on arms, non healing RIGHT buttock abscess sp drainage 3 years ago (stage 3 ulcer):There is no evidence of soft tissue skin infection or purulent drainage. Wound care recommended offload this area and low air loss mattress and to continue to use xeroderm changed every 2-3 days. #DVT prophylaxis- SC Heparin #Full code Allergies: Coded Allergies: cranberry (UNKNOWN 09/13/16) Disposition Summary Disposition Principal Diagnosis: Vit B12 deficiency Recurrent fall, unsteady gait Additional Diagnosis: Exophytic soft tissue densities on bilateral kidneys on CT in 2016 Skin tears on arms, non healing RIGHT buttock abscess sp drainage 3 years ago ( stage 2 ulcer) Discharge Disposition: SNF Discharge Instructions General Discharge Information Code Status: Full Code Patient's Diet: Regular Patient's Activity: As tolerated Follow-Up Instructions/Appts: Please follow up with PCP in 1 week. Please get renal ultrasound in 6 months. Wound care recommended offload this area and low air loss mattress and to continue to use xeroderm changed every 2-3 days. Medications at Discharge Discharge Medications: Stop taking the following medications: Amoxicillin/Clavulanate Potass (Amox-Clav 875-125 MG Tablet) 875 MG-125 MG TABLET ORAL TWICE DAILY Qty = 20 Start taking the following new medications: Calcium Carbonate/Vitamin D3 (Calcium + Vitamin D Tablet) 600 MG-200 TABLET 1 Tablet ORAL DAILY Qty = 90 No Refills Cyanocobalamin (Vitamin B-12) (Vitamin B12) 2,500 MCG TABLET 1 Tablet ORAL DAILY Qty = 90 No Refills Comments: Last Taken: 09/14/16 Time: 8 AM Amlodipine (Norvasc) 2.5 MG TABLET 1 Tablet ORAL DAILY Qty = 30 No Refills Comments: Last Taken: 09/14/16 Time: 7 AM Ferrous Sulfate (Ferrous Sulfate) 325 MG (65 MG IRON) TABLET.DR 325 Milligram ORAL TWICE DAILY Qty = 90 No Refills Comments: Last Taken: 09/14/16 Time: 8 AM Copies To: Lorraine KELLEY MD
[2016-09-12 14:07] VITALS: BP 142/90
--- NOTE | 2016-09-12 17:40 | Cons- Wound Care ---
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 He reportedly had an abscess drained some time ago with a persistent nonhealing wound. Is now on a low air loss mattress. Mobility is limited. 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 Ambulation: walker IADLs Independent: housework, finances, food prep, telephone, transportation, medication admin. Needs Assist: shopping. Exam & Diagnostic Data Vital Signs and I&O Vital Signs Result Date Time O2 Delivery Room Air 09/12 1701 Pulse Ox 93 09/12 1407 B/P 142/90 09/12 1407 Temp 97.7 09/12 1407 Pulse 82 09/12 1407 Resp 20 09/12 1407 Intake & Output 09/12 0000 09/11 1600 09/11 0800 Intake Total 360 1400 400 Output Total 800 200 Balance 360 600 200 Intake, IV 800 300 Intake, Oral 360 600 100 Number 1 Bowel Movements Output, Urine 800 200 Patient 148 lb 148 lb Weight Exam of his right buttock shows there to be a 1.5 x 0.3 full-thickness stage III ulcer present on admission. Whether this is a nonhealing surgical wound secondary incision and drainage or as result of pressure is uncertain. There is no evidence of acute infection at this time Assessment/Plan Impression/Plan: 86-year-old with spinal stenosis multiple falls awaiting placement. Recommend offload this area and the patient is on a low air loss mattress. Continue to use of thin do a term changed every 2-3 days. There is no evidence of soft tissue skin infection or purulent drainage Consult Acknowledgment - Thank you for your consult request.
[2016-09-12 22:29] VITALS: BP 144/68
[2016-09-13 07:01] VITALS: BP 146/70
--- NOTE | 2016-09-13 07:24 | PN- Housestaff ---
See Addendum GABO ROMANO,ERICA 09/13/16 0724: Subjective Follow-up For: History of recurrent fall Vitamin B12 deficiency Pressure ulcer Subjective: Patient is seen and examined at the bedside. He was not having any active complaint. Review of Systems Constitutional: Denies: no symptoms. Cardiovascular: Denies: no symptoms. Comments: He denies any active complaints Objective Last 24 Hrs of Vital Signs/I&O Vital Signs Date Time Temp Pulse Resp B/P B/P Pulse O2 O2 Flow FiO2 Mean Ox Delivery Rate 09/13 1349 97.8 72 18 142/60 92 Room Air 09/13 0929 Room Air 09/13 0701 98.1 75 20 146/70 93 Room Air 09/12 2229 98.6 74 18 144/68 95 Room Air 09/12 1701 Room Air Intake & Output 09/13 1600 09/13 0800 09/13 0000 Intake Total 180 220 Output Total 400 400 Balance -220 -180 Intake, Oral 180 220 Output, Urine 400 400 Patient 66.678 kg Weight Physical Exam General Appearance: Alert, Oriented X3, Cooperative, No Acute Distress Cardiovascular: Normal S1, Normal S2 Lungs: Clear to Auscultation, Normal Air Movement Abdomen: Soft, distended Extremities: No Clubbing, No Cyanosis, No Edema Current Medications: Current Medications Sig/Darrell Start time Last Medication Dose Route Stop Time Status Admin Acetaminophen 650 MG Q6P PRN 09/11 0330 AC PO Acetaminophen 1,000 MG Q6P PRN 09/11 0330 AC IV Calcium/Vitamin D 1 TAB DAILY 09/13 1000 AC 09/13 PO 1222 Cyanocobalamin 1,000 MCG ONCE ONE 09/13 1315 CAN PO 09/13 1316 Cyanocobalamin 2,000 MCG DAILY 09/13 1000 AC 09/13 PO 1222 Cyanocobalamin 1,000 MCG ONCE ONE 09/13 0915 DC 09/13 IM 09/13 0916 1221 Cyanocobalamin 1,000 MCG DAILY 09/11 1006 DC 09/13 PO 0824 Guaifenesin 600 MG Q12 09/11 1000 AC 09/13 PO 0824 Heparin Sodium 5,000 UNIT Q8 09/12 1145 AC 09/13 (Porcine) SC 1223 Lidocaine 1 PAT Q24H 09/11 0330 AC 09/13 EXT 0556 Morphine Sulfate 2 MG Q4P PRN 09/11 0330 AC IV Assessment/Plan Assessment: 86-year-old male with a history of spinal stenosis presenting status post fall, with recurrent falls (3-4 per month). Vital signs -temperature 98.1, pulse 75, respiratory rate 20, blood pressure 146 /70, SPO2 93% on room air Plan - Discharge tomorrow # Recurrent fall, unsteady gait probably secondary to vitamin B12 deficiency # Laceration on forehead sutured in ED - CT head no acute intracranial hemorrhage - Vit b12 found to be low at 234 * Vit b12 supplementation -will give injection in the hospital and by mouth medication as an outpatient. * PT recc STR, need 3 night stay * Admit to * h/h stable # Recently diagnosed pneumonia - Patient states that since last 3 weeks he had been getting nonproductive cough , worsening of breathing, pain in lateral side of the chest and back both sides upon deep breathing. On September 07, he followed up with the primary care physician , in office that the pressure was elevated, chest x-ray was obtained which showed pneumonia, so patient was started on Augmentin. - CXR:Bilateral small pleural effusions with bibasilar markings more suggestive of atelectasis in this setting. Overall the appearance is similar to the 2016 exam. * Follow off abx as pt now complains of loose stool and no convining evidence of pneumonia * mucinex 600 bid for cough # Loose stool - was on abx prior to admission for pna * follow up cdiff # Exophytic soft tissue densities on bilateral kidneys on CT in 2016, * Ultrasound shows Two mildly complex hypoechoic (Bosniak 2F) cysts,Please get repeat renal us in 6 months # Skin tears on arms, non healing RIGHT buttock abscess sp drainage 3 years ago (stage 2 ulcer) * [id number] mattress,Duoderm/Change every 2-3 days * appreciate wound consult with Dr. Laughlin Diet: regular Pain management Tylenol 650 mg q6 PRN, Lidocaine patch, IV morphine 2 mg prn Q4 for severe pain DVT prophylaxis- heparin 5000U q8h sc amd alps CODE STATUS - FC Problem List: 1. Fall 2. Vitamin B12 deficiency Pain Ratin Pain Location: Not applicable Pain Goal: Remain pain free Pain Plan: mild Tomorrow's Labs & Rationales: not required DVT/Prophylaxis: mechanical, pharmacological DEON,MANIK 09/13/16 1033: Attending MD Review Statement Attending Statement Attending MD Statement: examined this patient, discuss w/resident/PA/BOATING SAFETY OFFICER, agreed w/resident/PA/BOATING SAFETY OFFICER, discussed with family, reviewed EMR data (avail), discussed with nursing, discussed with case mgmt, reviewed images, amended to note Attending Assessment/Plan: "This is an 86-year-old male with a past medical history that's not very significant but was had a significant change in his physical capacity for the past 6 months. He's been seeing Dr. Kaba and most recently saw Dr. Contreras for spinal stenosis. He has been feeling progressively more weak and ultimately fell sustaining a laceration to his head requiring sutures over his right eyebrow and a knee abrasion with an elbow bruise. Dr. Kaba had recently started him on by mouth Augmentin as of September 07 in view of a chest x-ray that showed ?pneumonia however the chest x-ray shows much more atelectasis and given the lack of fever or cough and the fact that the nurses saying he is having some loose bowel movements will stop the Augmentin and check a stool for C. difficile. His B12 level has come back low and that could certainly account for his weakness . Will start B12 supplementation. At this point we are pending a PT eval and the nurse walked him, he's an assist of 2. I think he is going to need short-term rehabilitation for safe discharge planning. Will await PT and if he does need STR, will need to make him an admission and follow closely. The daughters are on board with the plan". ASSESSMENT 1. General physical deconditioning. 2. Spinal stenosis 3. b/l lower extremity weakness 4. Vitamin b 12 defeciency 5. chronic wound on buttock present on admission PLAN replace vit b 12 give parenteral route, add CA+Vit D, PT eval recommend STR , family/patient agreeable to treatment. wound care appreciated. gi/dvt prophyalxis case management consult. anticipate d/c soon, medically stable for discharge.
--- NOTE | 2016-09-13 09:17 | NUR ---
WOUND CARE: LATE ENTRY 09/12/16 230 PM - PT EVALUATED AT REQUEST OF NURSING STAFF FOR SKIN ALTERATION PRESENT ON ADMISSION TO RIGHT BUTTOCKS - PT STATED HE "HAD A BOIL THAT THE DOCTOR DRAINED THERE OVER A YEAR AGO AND IT HASNT HEALED" - PT EXAMINED IN BED ON SIDE LYING POSITION PT NOTED WITH A FULL THICNKESS WOUND TO RIGHT BUTTOCKS 1.3 X 0.3 CM X 0.3 CM 50% SLOUGH AT CENTER 50% NONVIABLE PINK FILL - EPIBOLE NOTED TO WOUND EDGE 12:00 - 7:00 - MAY NEED REVISION OF SCAR TO PROMOTE HEALING OR TREATMENT WITH SILVER NITRATE - SCANT SEROUS DRNG - PERIWOUND UNREMARKABLE NO INDURATION - LEFT BUTTOCKS NOTED WITH AREA OF BOGGY TISSUE DUE TO PRIOR BREAKDOWN REPORTED BY PT - IMPRESSION: NONHEALING SX WOUND REPORTED BY PT TO RIGHT BUTTOCKS (HX OF BOIL REQUIRING I+D) RECOMMENDATION: CLEANSE WITH NS FB 1X1 FOAM FB HYDROCOLLOID DRESSING Q 3 DAYS AND PRN - PT TO F/U AT [facility] AFTER DC, HE MAY REQUIRE FURTHER TREATMENT TO EPIBOLE IN ORDER TO PROMOTE HEALING IN CHRONIC WOUND - PT CURRENTLY ON SIZE SHAFFER MATTRESS - APPLY MOISTURE BARRIER QS ADN PRN REPORTED BY NURSING THAT PT HAS OCC INC
[2016-09-13 13:49] VITALS: BP 142/60
--- NOTE | 2016-09-13 14:17 | Event Note ---
Event Note Event Note: I was called by the nurse reuben that duaghter of patient want to have updates about the patients clinical condition. I talked to Ms Idania miller [phone]. She wanted to know about the management of vitamin B12 deficiency. I told that there are options like injection/tablet. We will start patient on injection in the hospital but will continue tablets after discharge. He needs to follow-up with Dr. Boland(PCP). She told that she will come tomorrow, at the time of discharge and will talke about treatment and follow up.
[2016-09-13] MEDS ORDERED: FERROUS SULFAT325 M2 PO (14:59)
[2016-09-13 22:20] VITALS: BP 160/80
[2016-09-14 06:30] VITALS: BP 184/90
--- NOTE | 2016-09-14 06:56 | Event Note ---
Event Note Event Note: BP was systolic 190 this am, 160 last night, will give 1X 5mg amlodipine.
--- NOTE | 2016-09-14 07:14 | PN- Housestaff ---
GABO ROMANO,ERICA 09/14/16 0714: Subjective Follow-up For: History of recurrent fall Vitamin B12 deficiency full-thickness stage III Pressure ulcer Complaints: no complaints Subjective: Patient is seen and examined at the bedside, he was not having any active complaints. According to nurse, and overnight he has been episode of hypertension and was given 5 milligram of amlodipine. Today, his blood pressure was 189/90. We will observe the patient for next couple of hours and recheck the blood pressure. 11:30AM, his blood pressure came down to 150/80. Discussed with attending and resident. Advised to add amlodipine 2.5 milligrams OD and will follow-up as an outpatient to PCP. Review of Systems Constitutional: Denies: no symptoms. Comments: He denies any active complaints Objective Last 24 Hrs of Vital Signs/I&O Vital Signs Date Time Temp Pulse Resp B/P B/P Pulse O2 O2 Flow FiO2 Mean Ox Delivery Rate 09/14 0703 180/90 09/13 2220 97.6 73 20 160/80 94 09/13 1349 97.8 72 18 142/60 92 Room Air 09/13 0929 Room Air Intake & Output 09/14 0800 09/14 0000 09/13 1600 Intake Total 490 Output Total 540 400 Balance -540 90 Intake, IV 10 Intake, Oral 480 Number 1 Bowel Movements Output, Urine 540 400 Patient 66.678 kg Weight Physical Exam General Appearance: Alert, Oriented X3, Cooperative Cardiovascular: Normal S1, Normal S2 Lungs: Clear to Auscultation, Normal Air Movement Abdomen: Soft, distended Neurological: Normal Speech Extremities: No Clubbing, No Cyanosis, No Edema Vascular: Normal Pulses, Pulses Symmetrical Current Medications: Current Medications Sig/Darrell Start time Last Medication Dose Route Stop Time Status Admin Acetaminophen 650 MG Q6P PRN 09/11 0330 AC PO Acetaminophen 1,000 MG Q6P PRN 09/11 0330 DC IV Amlodipine Besylate 5 MG DAILY 09/14 1000 CAN PO Amlodipine Besylate 5 MG ONCE ONE 09/14 0700 DC 09/14 PO 09/14 0701 0703 Calcium/Vitamin D 1 TAB DAILY 09/13 1000 AC 09/14 PO 0818 Captopril 12.5 MG ONE ONE 09/14 0830 CAN PO 09/14 0831 Cyanocobalamin 2,000 MCG DAILY 05/23 1000 AC 09/14 PO 0818 Ferrous Sulfate 325 MG BID 09/13 1447 AC 09/14 PO 0818 Guaifenesin 600 MG Q12 09/11 1000 AC 09/14 PO 0818 Heparin Sodium 5,000 UNIT Q8 09/12 1145 AC 09/13 (Porcine) SC 2024 Lidocaine 1 PAT Q24H 09/11 0330 AC 09/14 EXT 0323 Morphine Sulfate 2 MG Q4P PRN 09/11 0330 DC IV Assessment/Plan Assessment: 86-year-old male with a history of spinal stenosis presenting status post fall, with recurrent falls (3-4 per month). Vital signs -temperature 97.7, pulse 81, respiratory rate 20, blood pressure 140 /62, SPO2 93% on room air Plan - Discharge today # Recurrent fall, unsteady gait probably secondary to vitamin B12 deficiency # Laceration on forehead sutured in ED - CT head no acute intracranial hemorrhage - Vit b12 found to be low at 234 * Vit b12 supplementation -given injection in the hospital and by mouth medication as an outpatient. # Recently diagnosed pneumonia - Patient states that since last 3 weeks he had been getting nonproductive cough , worsening of breathing, pain in lateral side of the chest and back both sides upon deep breathing. On September 07, he followed up with the primary care physician , in office that the pressure was elevated, chest x-ray was obtained which showed pneumonia, so patient was started on Augmentin. - CXR:Bilateral small pleural effusions with bibasilar markings more suggestive of atelectasis in this setting. Overall the appearance is similar to the 2016 exam. * Continue mucinex 600 bid for cough # Exophytic soft tissue densities on bilateral kidneys on CT in 2016, * Ultrasound shows Two mildly complex hypoechoic (Bosniak 2F) cysts, advised to contact repeat renal us in 6 months # Skin tears on arms, non healing RIGHT buttock abscess sp drainage 3 years ago (stage 3 ulcer) * Duoderm/Change every 2-3 days Diet: regular diet CODE STATUS - FC Problem List: 1. Fall 2. Vitamin B12 deficiency Pain Ratin Pain Location: not applicable Pain Goal: Remain pain free Pain Plan: mild Tomorrow's Labs & Rationales: not required as he is discharge DVT/Prophylaxis: mechanical, pharmacological CHANTE CHAVARRIA 09/14/16 1100: Attending MD Review Statement Attending Statement Attending MD Statement: examined this patient, discuss w/resident/PA/NUCLEAR INSTRUCTOR, agreed w/resident/PA/NUCLEAR INSTRUCTOR, discussed with family, reviewed EMR data (avail), discussed with nursing, discussed with case mgmt, reviewed images, amended to note Attending Assessment/Plan: "This is an 86-year-old male with a past medical history that's not very significant but was had a significant change in his physical capacity for the past 6 months. He's been seeing Dr. Kaba and most recently saw Dr. Contreras for spinal stenosis. He has been feeling progressively more weak and ultimately fell sustaining a laceration to his head requiring sutures over his right eyebrow and a knee abrasion with an elbow bruise. Dr. Kaba had recently started him on by mouth Augmentin as of September 07 in view of a chest x-ray that showed ?pneumonia however the chest x-ray shows much more atelectasis and given the lack of fever or cough and the fact that the nurses saying he is having some loose bowel movements will stop the Augmentin and check a stool for C. difficile. His B12 level has come back low and that could certainly account for his weakness . Will start B12 supplementation. At this point we are pending a PT eval and the nurse walked him, he's an assist of 2. I think he is going to need short-term rehabilitation for safe discharge planning. Will await PT and if he does need STR, will need to make him an admission and follow closely. The daughters are on board with the plan". ASSESSMENT 1. General physical deconditioning. 2. Spinal stenosis 3. b/l lower extremity weakness 4. Vitamin b 12 defeciency 5. chronic wound on buttock present on admission 6. elevated BP PLAN replace vit b 12 give parenteral route, add CA+Vit D, PT eval recommend STR , family/patient agreeable to treatment. wound care appreciated. add low dose of amlodipine 2.5 mg daily, monitor bp as o/p. gi/dvt prophyalxis PT recommends STR. anticipate d/c soon, medically stable for discharge.
[2016-09-14] MEDS ORDERED: VITAMIN B122500 MC1 PO (07:29)
[2016-09-14] MEDS ORDERED: CALCIUM + VITA1 EAC1 PO (07:31)
[2016-09-14 08:22] VITALS: BP 162/70
[2016-09-14] MEDS ORDERED: NORVASC2.5 M1 PO (10:47)
[2016-09-14 12:03] VITALS: BP 162/70
[2016-09-14 12:05] VITALS: BP 162/70
[2016-09-14 12:08] VITALS: BP 140/62
== END 2016-09-14 14:23 | DRG 640 ==
LOC: ERH 20:04 → ERHI 09-11 00:45 → ENRESERV 09-11 02:13 → 2NA 09-11 03:24
PROVIDERS: Physician Assistant; Radiology Diagnostic Radiology; Student in an Organized Health Care Education/Training Program; ADMIT Internal Medicine
PROC: 0HQ1XZZ Repair Face Skin, External Approach (ICD-10-PCS; principal; 2016-09-11)
DX: E53.8 Deficiency of other specified B group vitamins (principal); L89.313 Pressure ulcer of right buttock, stage 3; E86.0 Dehydration; S01.111A Laceration without foreign body of right eyelid and periocular area, initial encounter; W18.39XA Other fall on same level, initial encounter; Z91.81 History of falling; Y93.89 Activity, other specified; Y92.000 Kitchen of unspecified non-institutional (private) residence as the place of occurrence of the external cause; R53.1 Weakness; M48.00 Spinal stenosis, site unspecified; R19.7 Diarrhea, unspecified; R26.81 Unsteadiness on feet
CPT/HCPCS: 2NASP; 36415; 76775; 81001; 82436; 90714; 93005; 93010; 97110-GO; 97110-GP; 97116-GO; 97116-GP; 97161-GP; 97165-GO; 97530-GO; 97530-GP; G8978-GP; G8979-GP; J1644; J3420